=== PATIENT | male | born 1980 | race American Indian/Alaskan Native ===

== ENCOUNTER 2020-12-10 18:35 | Emergency (ER) | payer BC ==
[2020-12-10 18:42] VITALS: BP 121/64
[2020-12-10] MEDS ORDERED: MORPHINE 4 MG/1 ML INJ IV ONE (20:11)
[2020-12-10] MEDS ORDERED: ONDANSETRON 4 MG/2 ML INJ IV ONE (20:11)
[2020-12-10] MEDS ORDERED: SODIUM CHLORIDE 0.9% 1000 ML 1,000 ML IV ONE (20:11)
[2020-12-10] MEDS ORDERED: FAMOTIDINE 20 MG/2 ML INJ IV ONE (20:11)
[2020-12-10 20:49] LABS: Alanine Aminotransferase 15 units/L (7-56); Albumin 3.9 g/dL (3.9-5); BUN/Creatinine Ratio 11; Blood Urea Nitrogen 9 mg/dL (9-20); Calcium 9.4 mg/dL (8.4-10.2); Hemolysis Index 11
[2020-12-10 20:54] LABS: Basophils % (Auto) 0.2 % (0.0-1.8); Hematocrit 42.4 % (35.5-45.6); Hemoglobin 14.5 gm/dl (11.8-15.2); Lymphocytes # (Auto) 0.3 K/mm3 (1.2-5.4); Lymphocytes % (Auto) 11.1 % (13.4-35.0); Mean Corpuscular HGB Conc 34 % (32-34); Mean Corpuscular Volume 96 fl (84-94); Monocytes # (Auto) 0.1 K/mm3 (0.0-0.8); Monocytes % (Auto) 3.1 % (0.0-7.3); Red Blood Count 4.43 M/mm3 (3.65-5.03); Red Cell Distribution Width 14.2 % (13.2-15.2)
[2020-12-10 20:57] LABS: Platelet Count 199 K/mm3 (140-440)
[2020-12-10 22:40] LABS: Bilirubin,Urine NEG (Negative); Blood,Urine NEG (Negative); Color,Urine Yellow (Yellow); Mucus,Urine 3+ /HPF; Urobilinogen,Urine < 2.0 mg/dL (<2.0)
--- NOTE | 2020-12-10 22:50 | Emergency Department Report ---
ED N/V/D HPI - General Chief complaint: Abdominal Pain Stated complaint: VOMITING PUI?: No Source: patient Mode of arrival: Ambulatory Limitations: No Limitations - History of Present Illness Initial comments: Patient is a 40-year-old -[place] male with no past medical history presents to the ED with complaint of acute onset persistent intractable nausea and vomiting, diarrhea and epigastric pain for the last 2 days after eating frozen food and salads from a restaurant. Patient states that in the last 24 hours he has not been able to eat or drink anything because of intractable nausea and vomiting and now feels generally weak and fatigue and lack of appetite. Patient denies syncope, headache, dizziness, hematemesis, hematochezia, chest pain, shortness of breath, cough, sore throat, dysuria, urinary frequency and urgency, penile discharge or hematuria and testicular pain. MD complaint: nausea, vomiting, diarrhea, abdominal pain (Epigastric pain) -: Sudden, days(s) (2) Description of Vomiting: food contents, watery Description of Diarrhea: water Associated Abdominal Pain: Yes (Epigastric) Location: epigastric Radiation: none Severity: severe Pain Scale: 7 Quality: cramping, sharp Consistency: intermittent Improves with: none Worsens with: eating, vomiting Context: possible food poisoning, sick contacts Associated Symptoms: denies other symptoms, malaise, nausea/vomiting. denies: myalgias, chest pain, cough, diaphoresis, fever/chills, rash, dysuria, shortness of breath, syncope, weakness, other - Related Data Previous Rx's Medication Instructions Recorded Last Taken Type Dicyclomine [Bentyl] 20 mg PO Q6H #30 tablet 12/10/20 Unknown Rx Famotidine [Pepcid] 20 mg PO BID #60 tablet 12/10/20 Unknown Rx Ondansetron [Zofran Odt] 4 mg PO Q8HR PRN #20 tab.rapdis 12/10/20 Unknown Rx Allergies Allergy/AdvReac Type Severity Reaction Status Date / Time No Known Allergies Allergy Verified 12/10/20 18:43 ED Review of Systems ROS: Stated complaint: VOMITING Other details as noted in HPI Constitutional: malaise, weakness. denies: chills, fever Eyes: denies: eye pain, eye discharge, vision change ENT: denies: ear pain, throat pain Respiratory: denies: cough, shortness of breath, wheezing Cardiovascular: denies: chest pain, palpitations Endocrine: no symptoms reported Gastrointestinal: abdominal pain (Epigastric), nausea, vomiting, diarrhea Genitourinary: denies: urgency, dysuria Musculoskeletal: denies: back pain, joint swelling, arthralgia Skin: denies: rash, lesions Neurological: denies: headache, weakness, paresthesias Psychiatric: denies: anxiety, depression Hematological/Lymphatic: denies: easy bleeding, easy bruising ED Past Medical Hx - Medications Home Medications: Home Medications Medication Instructions Recorded Confirmed Last Taken Type Dicyclomine [Bentyl] 20 mg PO Q6H #30 tablet 12/10/20 Unknown Rx Famotidine [Pepcid] 20 mg PO BID #60 tablet 12/10/20 Unknown Rx Ondansetron [Zofran Odt] 4 mg PO Q8HR PRN #20 tab.rapdis 12/10/20 Unknown Rx ED Physical Exam - General Limitations: No Limitations General appearance: alert, in no apparent distress - Head Head exam: Present: atraumatic, normocephalic, normal inspection - Eye Eye exam: Present: normal appearance, PERRL, EOMI Pupils: Present: normal accommodation - ENT ENT exam: Present: normal exam, normal orophraynx, mucous membranes moist, TM's normal bilaterally, normal external ear exam - Neck Neck exam: Present: normal inspection, full ROM - Respiratory Respiratory exam: Present: normal lung sounds bilaterally. Absent: respiratory distress, wheezes, rales, rhonchi, chest wall tenderness, accessory muscle use, decreased breath sounds - Cardiovascular Cardiovascular Exam: Present: regular rate, normal rhythm, normal heart sounds. Absent: systolic murmur, diastolic murmur, rubs, gallop - GI/Abdominal GI/Abdominal exam: Present: soft, tenderness (Palpable mild epigastric tenderness), normal bowel sounds. Absent: guarding, rebound, hyperactive bowel sounds, hypoactive bowel sounds, organomegaly - Extremities Exam Extremities exam: Present: normal inspection, full ROM, normal capillary refill - Back Exam Back exam: Present: normal inspection, full ROM. Absent: tenderness, CVA tenderness (R), muscle spasm, paraspinal tenderness, vertebral tenderness, rash noted - Neurological Exam Neurological exam: Present: alert, oriented X3, CN II-XII intact, normal gait - Psychiatric Psychiatric exam: Present: normal affect, normal mood - Skin Skin exam: Present: warm, dry, intact, normal color. Absent: rash ED Course Vital Signs 12/10/20 18:42 Temperature 97.8 F Pulse Rate 65 Respiratory 20 Rate Blood Pressure 121/64 [Left] O2 Sat by Pulse 100 Oximetry ED Medical Decision Making - Lab Data Result diagrams: 12/10/20 20:20 12/10/20 20:20 - Medical Decision Making This is a 40-year-old -[place] male with no past medical history presents to the ED with complaint of acute onset persistent intractable nausea and vomiting, diarrhea and epigastric pain for the last 2 days after eating frozen food and salads from a restaurant. Patient states that in the last 24 hours he has not been able to eat or drink anything because of intractable abel sea and vomiting and now feels generally weak and fatigue and lack of appetite. In the ED, patient is alert and oriented x3 and is not in any distress. Patient is hemodynamically stable. Lab test results were reviewed and are all nonactionable. Patient was treated in the ED for nausea and vomiting and also given normal saline 1 L IV bolus as well as treated with antacids. On reevaluation, patient felt better, nausea and vomiting and abdominal pain resolved with medication. Patient passed oral fluid challenge in the ED. Based on the history and physical exam findings as well as lab test results, patient symptoms are likely due to viral gastroenteritis from the food that he had consumed from a restaurant. Patient was therefore discharged home on medications and advised to maintain a clear liquid diet for 12 to 24 hours, drink plenty of fluids and follow-up with the primary care physician in 5 to 7 days for reevaluation. Patient was otherwise advised return to the ED immediately if symptoms get worse. - Differential Diagnosis Gastroenteritis; GERD; pancreatitis; dehydration Critical care attestation.: If time is entered above; I have spent that time in minutes in the direct care of this critically ill patient, excluding procedure time. ED Disposition Clinical Impression: Viral gastroenteritis, Nausea, vomiting and diarrhea GERD (gastroesophageal reflux disease) Qualifiers: Esophagitis presence: esophagitis presence not specified Qualified Code(s): K21.9 - Gastro-esophageal reflux disease without esophagitis Disposition: - TO HOME OR SELFCARE Is pt being admited?: No Does the pt Need Aspirin: No Condition: Stable Instructions: Viral Gastroenteritis, Adult, [id number], Nausea and Vomiting, Adult, [id number], Gastroesophageal Reflux Disease, Adult, [id number] Additional Instructions: All lab test results were reviewed and are all nonactionable. Your symptoms are likely viral from food poisoning. Therefore maintain a clear liquid diet for 12 to 24 hours. Take medication as needed for nausea and vomiting and for pain as well as the antacid to help calm your abdomen. Follow-up with your primary care physician in 5 to 7 days for reevaluation. Return to the ED immediately if symptoms get worse. Prescriptions: Dicyclomine [Bentyl] 20 mg PO Q6H #30 tablet Famotidine [Pepcid] 20 mg PO BID #60 tablet Ondansetron [Zofran Odt] 4 mg PO Q8HR PRN #20 tab.rapdis PRN Reason: Nausea And Vomiting Referrals: [facility] [Provider Group] - 3-5 Days Forms: Work/School Release Form(ED) Time of Disposition: 22:51 Print Language: MACEDONIAN
== END 2020-12-10 23:55 | disposition home or self-care (01) ==
LOC: ED 18:35
DX: A08.4 Viral intestinal infection, unspecified (principal); R11.2 Nausea with vomiting, unspecified; R19.7 Diarrhea, unspecified; K21.9 Gastro-esophageal reflux disease without esophagitis; Z79.899 Other long term (current) drug therapy
CPT/HCPCS: 36415; 80053; 81001; 83690; 85025; 96361; 96374; 96375; 99283; J2270; J2405; J7030

== ENCOUNTER 2020-12-13 12:39 | Emergency (ER) | payer BC ==
[2020-12-13 13:52] VITALS: BP 134/72
[2020-12-13 15:25] LABS: Basophils % (Auto) 0.3 % (0.0-1.8); Hematocrit 41.7 % (35.5-45.6); Hemoglobin 14.1 gm/dl (11.8-15.2); Lymphocytes # (Auto) 1.1 K/mm3 (1.2-5.4); Lymphocytes % (Auto) 21.4 % (13.4-35.0); Mean Corpuscular HGB Conc 34 % (32-34); Mean Corpuscular Volume 95 fl (84-94); Monocytes # (Auto) 0.2 K/mm3 (0.0-0.8); Monocytes % (Auto) 4.2 % (0.0-7.3); Platelet Count 205 K/mm3 (140-440); Red Blood Count 4.39 M/mm3 (3.65-5.03); Red Cell Distribution Width 13.9 % (13.2-15.2)
[2020-12-13 15:40] LABS: Alanine Aminotransferase 19 units/L (7-56); Albumin 4.1 g/dL (3.9-5); BUN/Creatinine Ratio 13; Blood Urea Nitrogen 12 mg/dL (9-20); Calcium 9.1 mg/dL (8.4-10.2); Hemolysis Index 11
[2020-12-13] MEDS ORDERED: SODIUM CHLORIDE 0.9% 1000 ML 1,000 ML IV ONE (16:26)
--- NOTE | 2020-12-13 16:27 | Emergency Department Report ---
ED Abdominal Pain HPI - General Chief Complaint: Abdominal Pain Stated Complaint: VOMITING Time Seen by Provider: 12/13/20 16:03 Source: patient Mode of arrival: Ambulatory Limitations: No Limitations - History of Present Illness Initial Comments: 40-year-old male with no significant past medical history presents to the ER today with complaints of abdominal pain, nausea and vomiting. Patient states that the symptoms started last night. Patient reports multiple episodes of nausea and vomiting since around 12 AM. He states that emesis was initially food but became bilious and his last couple episodes of vomiting he did see small streaks of blood. He reports pain to epigastric and left upper and left lower abdominal area since last night. Patient states that he had similar symptoms on Thursday and was seen here. He states that they did labs and give him IV fluids diagnosed with with a stomach virus and he was discharged home on medications. Patient states that after he left the ER he was feeling fine. He states that he was doing well yesterday morning but last night after eating dinner a couple hours after he started having nausea and vomiting again. He states that he tried to take the medication that he was prescribed but did not help. He states that he has been having diarrhea since Thursday but feels like it is slowing down compared to the vomiting. He reports chills but no fever. He denies any chest pain or shortness of breath. He states that when he started with the symptoms on Thursday he thought it was related to bad lettuce that he had eaten. He states that the food he ate last night was not bad noticed smell bad. He denies any recent travel or any ill contacts. He denies any antibiotic intake. MD Complaint: abdominal pain -: Last night Location: LUQ, epigastric - Related Data Previous Rx's Medication Instructions Recorded Last Taken Type Dicyclomine [Bentyl] 20 mg PO Q6H #30 tablet 12/10/20 12/13/20 03:00 Rx Famotidine [Pepcid] 20 mg PO BID #60 tablet 12/10/20 12/13/20 03:00 Rx Ondansetron [Zofran ODT TAB] 4 - 8 mg PO Q8HR PRN #20 tab.rapdis 12/13/20 Unknown Rx Allergies Allergy/AdvReac Type Severity Reaction Status Date / Time No Known Allergies Allergy Verified 07/01/21 18:27 ED Review of Systems ROS: Stated complaint: VOMITING Other details as noted in HPI Comment: All other systems reviewed and negative Constitutional: denies: chills, fever Eyes: denies: eye pain, eye discharge, vision change ENT: denies: ear pain, throat pain, dental pain, hearing loss, epistaxis, congestion Respiratory: denies: cough, shortness of breath, SOB with exertion, SOB at rest, wheezing Cardiovascular: denies: chest pain, palpitations, dyspnea on exertion, syncope, paroxysmal nocturnal dyspnea Gastrointestinal: abdominal pain, nausea, vomiting, diarrhea. denies: constipation, hematemesis, melena, hematochezia Genitourinary: denies: urgency, dysuria, frequency, hematuria, discharge, testicular pain, testicular mass Musculoskeletal: denies: back pain, joint swelling, arthralgia Skin: denies: rash, lesions, change in color, change in hair/nails, pruritus Neurological: denies: headache, weakness, numbness, paresthesias, confusion Psychiatric: denies: anxiety, depression, auditory hallucinations, visual hallucinations, homicidal thoughts, suicidal thoughts Hematological/Lymphatic: denies: easy bleeding, easy bruising, swollen glands ED Past Medical Hx - Past Medical History Previous Medical History?: Yes Hx Asthma: Yes - Surgical History Past Surgical History?: Yes Additional Surgical History: hernia repair - Medications Home Medications: Home Medications Medication Instructions Recorded Confirmed Last Taken Type Dicyclomine [Bentyl] 20 mg PO Q6H #30 tablet 12/10/20 12/13/20 12/13/20 03:00 Rx Famotidine [Pepcid] 20 mg PO BID #60 tablet 12/10/20 12/13/20 03:00 Rx Ondansetron [Zofran ODT TAB] 4 - 8 mg PO Q8HR PRN #20 tab.rapdis 12/13/20 Unkno wn Rx ED Physical Exam - General Limitations: No Limitations General appearance: alert, in no apparent distress - Head Head exam: Present: atraumatic, normocephalic, normal inspection - Eye Eye exam: Present: normal appearance, PERRL, EOMI Pupils: Present: normal accommodation - Neck Neck exam: Present: normal inspection, full ROM - Respiratory Respiratory exam: Present: normal lung sounds bilaterally. Absent: respiratory distress, wheezes, rales - Cardiovascular Cardiovascular Exam: Present: regular rate, normal rhythm, normal heart sounds - GI/Abdominal GI/Abdominal exam: Present: soft, tenderness (TTP epigastric and LUQ and LLQ area with mild guarding but no rebound or guarding.). Absent: distended - Neurological Exam Neurological exam: Present: alert, oriented X3, CN II-XII intact, normal gait - Psychiatric Psychiatric exam: Present: normal affect, normal mood - Skin Skin exam: Present: intact ED Course Vital Signs 12/13/20 13:50 Temperature 98.0 F Pulse Rate 54 L Respiratory 18 Rate Blood Pressure 134/72 O2 Sat by Pulse 98 Oximetry ED Medical Decision Making - Lab Data Result diagrams: 12/13/20 15:07 12/13/20 15:07 - Medical Decision Making Patient reports feeling much better after fluids and meds. He was able to tolerate p.o. fluids and also some crackers without any vomiting. He states his abdominal pain is much better. Lab results reviewed and unremarkable. CT abdomen pelvis with IV contrast shows nothing acute. Discussed lab and imaging results with patient. No further work-up or admission or emergent consult needed at this time. Discussed suspected diagnosis and treatment plan with patient. He expressed understanding of instructions and agree with plan. Patient was stable at time of discharge. Critical care attestation.: If time is entered above; I have spent that time in minutes in the direct care of this critically ill patient, excluding procedure time. ED Disposition Clinical Impression: Viral gastroenteritis, Upper abdominal pain Disposition: -01 TO HOME OR SELFCARE Is pt being admited?: No Does the pt Need Aspirin: No Condition: Stable Instructions: Viral Gastroenteritis, Adult, [id number], [place] Diet Additional Instructions: I recommend he continue taking the Pepcid twice a day. Take the Zofran as prescribed. Recommend doing a bland diet for the next 12 to 24 hours. Drink l ots of fluids. Follow-up closely with primary care doctor. Return to the ER if symptoms changes or worsens in any way. Prescriptions: Ondansetron [Zofran ODT TAB] 4 - 8 mg PO Q8HR PRN #20 tab.rapdis PRN Reason: Nausea And Vomiting Referrals: ALLAN GARCIA MD [Staff Physician] - 3-5 Days Forms: Work/School Release Form(ED) Time of Disposition: 18:57
[2020-12-13] MEDS ORDERED: MORPHINE 4 MG/1 ML INJ IV ONE (16:32)
[2020-12-13] MEDS ORDERED: ONDANSETRON 4 MG/2 ML INJ IV ONE (16:32)
[2020-12-13 17:33] LABS: Bilirubin,Urine NEG (Negative); Blood,Urine NEG (Negative); Color,Urine Yellow (Yellow); Mucus,Urine 2+ /HPF; Protein,Urine <15 mg/dL mg/dL (Negative); Urobilinogen,Urine < 2.0 mg/dL (<2.0)
--- NOTE | 2020-12-13 18:19 | Cat Scan Report ---
CT OF THE ABDOMEN AND PELVIS WITH INTRAVENOUS CONTRAST INDICATION / CLINICAL INFORMATION: Epigastric and left upper quadrant abdominal pain with nausea and vomiting. TECHNIQUE: The patient received 100 cc Omnipaque [address] scans at this location are performed using CT dose reduction for ALARA by means of automated exposure control. COMPARISON: None available. FINDINGS: ABDOMEN: The liver, spleen, gallbladder, bile ducts, pancreas, adrenal glands, kidneys and bowel demo nstrate no significant abnormality. Small mesenteric lymph nodes are not pathologically enlarged and are likely reactive. The lung bases are clear. PELVIS: The distal ureters, urinary bladder, prostate gland and seminal vesicles are normal. A normal appendix is present and there is no evidence of diverticulitis. No abnormal mass or fluid collection is seen. I do not identify a hernia. No acute osseous abnormality is seen. IMPRESSION: No acute abnormality is identified. Signer Name: Percy Amaral MD Signed: 12/13/2020 6:15 PM Workstation Name: [id number]
--- NOTE | 2020-12-15 09:47 | Electrocardiograph Report ---
[facility] Test Date: 2020-12-13 Test Time: 17:33:55 Pat Name: UZIEL SALDAÑA Department: Room: Gender: M [employer]: FLORA : 1980 Requested By: EARNEST MATSON Order Number: [id number] Reading MD: Reece Bob Measurements Intervals [place] Rate: 56 P: 72 MO: 156 QRS: 86 QRSD: 80 T: 83 QT: 433 QTc: 418 Interpretive Statements Sinus bradycardia ST elev, probable normal early repol pattern No previous ECG available for comparison Electronically Signed On 12-15-2020 9:46:44 EDT by Reece Bob
== END 2020-12-13 19:14 | disposition home or self-care (01) ==
LOC: ED 12:39
DX: A08.4 Viral intestinal infection, unspecified (principal); R10.11 Right upper quadrant pain; R10.13 Epigastric pain; J45.909 Unspecified asthma, uncomplicated; Z98.890 Other specified postprocedural states; Z79.899 Other long term (current) drug therapy
CPT/HCPCS: 36415; 74177; 80053; 81001; 83690; 84484; 85025; 93005; 96361; 96374; 96375; 99284; J2270; J2405; J7030; Q9967